=== PATIENT | female | born 1995 | race African-American/Black ===

== ENCOUNTER 2018-02-21 16:41 | Emergency (ER) | payer OTHER ==
--- NOTE | 2018-02-21 16:58 | PDOC ---
Rapid Medical Evaluation Chief Complaint: Urinary Problem Time Seen by Provider: 02/21/18 16:57 Medical Evaluation: Allergies Allergy/AdvReac Type Severity Reaction Status Date / Time No Known Allergies Allergy Verified 02/21/18 16:51 Vital Signs Temp Pulse Resp BP Pulse Ox 98.9 F 73 19 131/87 100 02/21/18 16:52 02/21/18 16:52 02/21/18 16:52 02/21/18 16:52 02/21/18 16:52 02/21/18 16:57 I have performed a brief in-person evaluation of this patient. The patient presents with a chief complaint of:dysuria x 4 days Pertinent physical exam findings:unremarkable I have ordered the following:upreg, ua, ucx The patient will proceed to the ED for further evaluation. Discharge Disposition - Diagnosis Dysuria - Referrals - Patient Instructions - Post Discharge Activity
[2018-02-21 17:11] VITALS: BP 131/87; PULSE 73; TEMP 98.9; BMI 21.4
--- NOTE | 2018-02-21 17:20 | PDOC ---
History of Present Illness - General Chief Complaint: Urinary Problem Stated Complaint: PAIN Time Seen by Provider: 02/21/18 16:57 - History of Present Illness Initial Comments: 22-year-old female presenting for evaluation of dysuria 4 days and mild back pain.. No other associated symptoms. 02/21/18 17:19 Past History - Past Medical History Allergies/Adverse Reactions: Allergies Allergy/AdvReac Type Severity Reaction Status Date / Time No Known Allergies Allergy Verified 02/21/18 16:51 Home Medications: Ambulatory Orders Nitrofurantoin Monohyd/M-Cryst [Macrobid -] 100 mg PO BID #14 capsule 02/21/18 COPD: No Other medical history: DENIES. - Suicide/Smoking/Psychosocial Hx Smoking History: Never smoked Review of Systems - Review of Systems : Yes: Dysuria Musculoskeletal: Yes: Back Pain All Other Systems: Reviewed and Negative *Physical Exam - Vital Signs Last Vital Signs Temp Pulse Resp BP Pulse Ox 98.9 F 73 19 131/87 100 02/21/18 16:52 02/21/18 16:52 02/21/18 16:52 02/21/18 16:52 02/21/18 16:52 - Physical Exam Comments: GENERAL: The patient is awake, alert, and fully oriented, in no acute distress. HEAD: Normal with no signs of trauma. EYES: Pupils equal, round and reactive to light, extraocular movements intact, sclera anicteric, conjunctiva clear. ENT: Ears normal, nares patent, oropharynx clear without exudates. Moist mucous membranes. NECK: Normal range of motion, supple without lymphadenopathy, JVD, or masses. LUNGS: Breath sounds equal, clear to auscultation bilaterally. No wheezes, and no crackles. HEART: Regular rate and rhythm, normal S1 and S2 without murmur, rub or gallop. ABDOMEN: Soft, nontender, normoactive bowel sounds. No guarding, no rebound. No masses. EXTREMITIES: Normal range of motion, no edema. No clubbing or cyanosis. No cords, erythema, or tenderness. NEUROLOGICAL: Cranial nerves II through XII grossly intact. Normal speech, normal gait. PSYCH: Normal mood, normal affect. SKIN: Warm, Dry, normal turgor, no rashes or lesions noted. 02/21/18 17:20 Medical Decision Making - Medical Decision Making We'll check urine 02/21/18 17:20 *DC/Admit/Observation/Transfer Diagnosis at time of Disposition: Dysuria, UTI (urinary tract infection) - Discharge Dispostion Disposition: HOME Condition at time of disposition: Stable Decision to Admit order: No - Referrals Referrals: Donis Gerard [Non Staff, Medical] - - Patient Instructions Printed Discharge Instructions: Urinary Tract Infection Additional Instructions: You have a urinary tract infection. Return to the emergency room should her symptoms worsen or go unresolved. Please follow-up with the primary care physician listed. Please take all the antibiotics as prescribed. - Post Discharge Activity
[2018-02-21 18:30] LABS: HCG,QUALITATIVE URINE NEGATIVE
[2018-02-21 19:07] LABS: URINE APPEARANCE CLEAR; URINE BILIRUBIN NEGATIVE (<2.0 mg/dL); URINE COLOR AMBER; URINE GLUCOSE (UA) NEGATIVE (NEGATIVE); URINE KETONE TRACE (NEGATIVE); URINE LEUK ESTERASE TRACE (NEGATIVE); URINE NITRITE POSITIVE (NEGATIVE); URINE UROBILINOGEN 4.0 E.U/dl mg/dL (0.2-1.0)
[2018-02-21 19:10] LABS: URINE PROTEIN 1+ (NEGATIVE)
[2018-02-21 19:20] LABS: EPI CELLS MODERATE /HPF (FEW); URINE BACTERIA RARE /hpf (NONE SEEN); URINE MUCUS RARE
== END 2018-02-21 19:30 | disposition home or self-care (01) ==
LOC: JERFT 16:41 → JER 16:41 → JERFT 19:30
DX: N39.0 Urinary tract infection, site not specified (principal); B96.89 Other specified bacterial agents as the cause of diseases classified elsewhere
CPT/HCPCS: 81003; 81015; 84703; 87086; 87186; 99281-25

== ENCOUNTER 2018-09-23 20:43 | Emergency (ER) | payer OTHER ==
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
[2018-09-23 20:52] VITALS: BP 108/70; PULSE 100; TEMP 98.6; BMI 20.5
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
== END 2018-09-23 21:32 | disposition home or self-care (01) ==
LOC: JERFT 20:43
DX: S16.1XXA Strain of muscle, fascia and tendon at neck level, initial encounter (principal); V43.62XA Car passenger injured in collision with other type car in traffic accident, initial encounter; Y92.488 Other paved roadways as the place of occurrence of the external cause; Y93.89 Activity, other specified; Y99.8 Other external cause status
CPT/HCPCS: 99281-25